=== PATIENT | female | born 1935 | race Caucasian/White ===

== ENCOUNTER 2016-10-24 03:54 | Inpatient (IN) | payer OTHER ==
[2016-10-24] MEDS ORDERED: RAPID SEQUENCE INTUBATION KIT NR ONE ×2 (03:58→09:36)
[2016-10-24 04:10] VITALS: BMI 20.1
--- NOTE | 2016-10-24 04:10 | PDOC ---
History of Present Illness <Ricky Love - Last Filed: 10/24/16 05:54> - History of Present Illness Initial Comments: 10/24/16 05:27 The patient is a 80 year old female, with a significant past medical history liver cirrhosis, who presents to the emergency department via family nonverbal, in extremis, hypoxic, and cyanic. As per the family, the patient has been having difficulty breathing and experiencing a cough today. Allergies: Penicillins PCP - Dr. Villalba <Siobhan Easton - Last Filed: 10/24/16 06:51> - General Chief Complaint: Chest Pain Stated Complaint: CHEST PAIN Time Seen by Provider: 10/24/16 04:10 Past History - Past Medical History Liver Disease: Yes (cirrhosis) - Psycho/Social/Smoking Cessation Hx Suicidal Ideation: No Smoking History: Unknown if ever smoked <Ricky Love - Last Filed: 10/24/16 05:54> <Siobhan Easton - Last Filed: 10/24/16 06:51> - Past Medical History Allergies/Adverse Reactions: Allergies Allergy/AdvReac Type Severity Reaction Status Date / Time Penicillins Allergy Verified 10/24/16 04:08 Home Medications: Ambulatory Orders Salmeterol/Fluticasone [Advair 100Mcg/50Mcg -] 1 inh IH DAILY 10/24/16 Tiotropium Fischer [Spiriva] 1 inh PO DAILY 10/24/16 Review of Systems - Review of Systems Able to Perform ROS?: No (nonverbal) <Siobhan Easton - Last Filed: 10/24/16 06:51> *Physical Exam - Vital Signs Last Vital Signs Temp Pulse Resp BP Pulse Ox 98.4 F 112 H 20 87/47 68 L 10/24/16 04:08 10/24/16 04:08 10/24/16 04:08 10/24/16 04:08 10/24/16 04:08 <Ricky Love - Last Filed: 10/24/16 05:54> - Vital Signs Last Vital Signs Temp Pulse Resp BP Pulse Ox 98.4 F 112 H 17 87/47 68 L 10/24/16 04:08 10/24/16 04:08 10/24/16 04:17 10/24/16 04:08 10/24/16 04:08 - Physical Exam Comments: 10/24/16 06:40 GENERAL: (+) In respiratory distress. Obtundant. Nonverbal. Cachectic. HEENT: neck is supple, no meningismus. Normocephalic, atraumatic. CARDIOVASCULAR: (+) Tachycardic rate and normal rhythm. PULMONARY: (+) Scattered rales and rhonchi. ABDOMEN: Soft, non-distended with hypoactive bowel sounds EXTREMITIES: (+) muscle wasting and cyanotic. moving all four extremities. SKIN: Warm, dry. No rash <Siobhan Easton - Last Filed: 10/24/16 06:51> Procedures - Central Line Central Line Lumen: triple Central Line Position: femoral (L) Complications: none Post Central Line Insertion: sutured, good blood return Progress: 10/24/16 06:07 The central line was put in place by RAILROAD DETECTIVERasheed at 04:59 - Intubation Time of Intubation: 04:05 (performed by Dr. Love) Blade used: Mac Tube Size (Fr): 7.5 Medications: Etomidate, Succinylcholine, Versed (drip) Tube position @ lip (cm): 22 Post Intubation Xray: Yes <Siobhan Easton - Last Filed: 10/24/16 06:51> ED Treatment Course - LABORATORY CBC & Chemistry Diagram: 10/24/16 04:21 10/24/16 04:21 <Ricky Love - Last Filed: 10/24/16 05:54> - LABORATORY CBC & Chemistry Diagram: 10/24/16 04:21 10/24/16 04:21 - ADDITIONAL ORDERS Additional order review: Laboratory Results 10/24/16 10/24/16 10/24/16 04:52 04:21 04:21 D-Dimer Cancelled Sodium Potassium Chloride Carbon Dioxide Anion Gap BUN Creatinine Creat Clearance w eGFR Random Glucose Lactic Acid Calcium Total Bilirubin AST ALT Alkaline Phosphatase Creatine Kinase 38 Troponin I 0.05 B-Natriuretic Peptide 299.76 Total Protein Albumin Urine Color Mary Urine Appearance Cloudy Urine pH 5.0 Ur Specific [place] 1.019 Urine Protein 1+ H Urine Glucose (UA) Negative Urine Ketones Trace H Urine Blood 1+ H Urine Nitrite Negative Urine Bilirubin Negative Urine Urobilinogen 4.0 e.u/dl H Ur Leukocyte Esterase 2+ H 10/24/16 10/24/16 04:21 04:21 D-Dimer Sodium 143 Potassium 4.5 Chloride 111 H Carbon Dioxide 19 L Anion Gap 13 BUN 17 Creatinine 0.8 Creat Clearance w eGFR > 60 Random Glucose 131 H Lactic Acid 5.922 H* Calcium 8.7 Total Bilirubin 2.1 H AST 80 H ALT 38 Alkaline Phosphatase 166 H Creatine Kinase Troponin I B-Natriuretic Peptide Total Protein 5.6 L Albumin 2.3 L Urine Color Urine Appearance Urine pH Ur Specific [place] Urine Protein Urine Glucose (UA) Urine Ketones Urine Blood Urine Nitrite Urine Bilirubin Urine Urobilinogen Ur Leukocyte Esterase 10/24/16 04:21 RBC 5.08 MCV 87.0 MCHC 33.1 RDW 17.3 H MPV 9.5 Neutrophils % 81.9 Lymphocytes % 12.7 Monocytes % 4.5 Eosinophils % 0.2 Basophils % 0.7 - Medications Given in the ED: ED Medications Discontinued Medications Generic Name Dose Route Start Last Admin Trade Name Freq PRN Reason Stop Dose Admin Etomidate 20 mg 10/24/16 04:11 10/24/16 04:21 Amidate - IVPUSH 10/24/16 04:12 20 mg NOW ONE Administration Succinylcholine Chloride 100 mg 10/24/16 04:11 10/24/16 04:21 Quelicin - IVPUSH 10/24/16 04:12 100 mg ONCE ONE Administration <Siobhan Easton - Last Filed: 10/24/16 06:51> Medical Decision Making - Critical Care Time Total Critical Care Time (minutes): 35 Critical Care Statement: The care of this patient involved high complexity decision making to prevent further life threatening deterioration of the patient 's condition and/or to evalute & treat vital organ system(s) failure or risk of failure. <Siobhan Easton - Last Filed: 10/24/16 06:51> *DC/Admit/Observation/Transfer - Discharge Dispostion Admit: Yes <Ricky Love - Last Filed: 10/24/16 05:54> - Attestations Scribe Attestion: 10/24/16 05:45 Documentation prepared by Siobhan Easton, acting as medical claims representative for Ricky Love MD, <Siobhan Easton - Last Filed: 10/24/16 06:51> Diagnosis at time of Disposition: Pneumonia, Sepsis, Cirrhosis - Discharge Dispostion Condition at time of disposition: Critical - Referrals Referrals: Stanley Villalba MD [Primary Care Provider] -
[2016-10-24] MEDS ORDERED: SUCCINYLCHOLINE CHLORIDE 200 MG/10 ML VIAL IVPUSH ONE (04:11)
[2016-10-24] MEDS ORDERED: ETOMIDATE 40 MG/20 ML VIAL IVPUSH ONE (04:11)
[2016-10-24] MEDS ORDERED: MIDAZOLAM 100 MG in SODIUM CHLORIDE 100 ML IVPB SCH (04:15)
[2016-10-24 04:29] LABS: BASOPHIL 0.7 % (0-2.0); EOSINOPHIL 0.2 % (0-4.5); MCH 28.8 pg (25.7-33.7); MCHC 33.1 g/dl (32.0-36.0); MEAN PLT VOLUME 9.5 fl (7.5-11.1); NEUTROPHILS 81.9 % (42.8-82.8); PLATELET COUNT 120 K/MM3 (134-434); RDW 17.3 % (11.6-15.6); WHITE BLOOD COUNT 12.1 K/mm3 (4.0-10.0)
[2016-10-24] MEDS ORDERED: AZTREONAM 2 GM in DEXTROSE 5%-WATER - 100 ML IV ONE (04:31)
[2016-10-24] MEDS ORDERED: VANCOMYCIN 1,000 MG in DEXTROSE 5%-WATER - 250 ML IVPB ONE (04:31)
[2016-10-24] MEDS ORDERED: VANCOMYCIN 1 GRAM (PRE-DOCKED) 250 ML IVPB ONE (04:41)
[2016-10-24] MEDS ORDERED: NOREPINEPHRINE BITARTRATE 4 MG/4 ML ML IV ONE ×2 (04:41→17:08)
[2016-10-24 04:56] LABS: ALBUMIN 2.3 g/dl (3.4-5.0); ALK PHOS 166 U/L (45-117); ANION GAP 13 (8-16); BILIRUBIN,TOTAL 2.1 mg/dL (0.2-1.0); CALCIUM 8.7 mg/dL (8.5-10.1); CO2 19 mmol/L (21-32); CREATININE 0.8 mg/dL (0.55-1.02); GLUCOSE,RANDOM 131 mg/dL (74-106); SGOT/AST 80 U/L (15-37); SGPT/ALT 38 U/L (12-78); TOT PROT 5.6 g/dl (6.4-8.2)
[2016-10-24 05:16] LABS: URINE APPEARANCE CLOUDY; URINE BILIRUBIN NEGATIVE (NEGATIVE); URINE COLOR AMBER; URINE GLUCOSE (UA) NEGATIVE (NEGATIVE); URINE KETONE TRACE (NEGATIVE); URINE NITRITE NEGATIVE (NEGATIVE); URINE UROBILINOGEN 4.0 E.U/dl E.U./dl (0.2-1.0)
[2016-10-24 05:17] LABS: TROPONIN I 0.05 ng/ml (0.00-0.05)
[2016-10-24 05:20] LABS: URINE BLOOD 1+ (NEGATIVE); URINE LEUK ESTERASE 2+ (NEGATIVE); URINE PROTEIN 1+ (NEGATIVE)
[2016-10-24 05:23] LABS: URINE BACTERIA RARE /hpf (NONE SEEN); URINE MUCUS MANY; URINE RBC 16 /hpf (0-3); URINE WBC 60 /hpf (3-5)
[2016-10-24] MEDS ORDERED: NOREPINEPHRINE BITARTRATE 4,000 MCG in DEXTROSE 5%-WATER - 496 ML IV SCH ×2 (05:45→17:52)
[2016-10-24 06:04] LABS: INR 1.99 (0.82-1.09); PROTHROMBIN TIME (PATIENT) 22.2 SEC (9.98-11.88)
[2016-10-24 06:07] LABS: ACTIVATED PTT 38.6 SECONDS (26.9-34.4)
[2016-10-24] MEDS ORDERED: HYDROCORTISONE SOD SUCCINATE 100 MG/2 ML VIAL IVPUSH ONE (06:53)
[2016-10-24] MEDS ORDERED: HYDROCORTISONE SOD SUCCINATE 2 ML ONE (06:58)
[2016-10-24 07:16] LABS: ALLENS TEST POSITIVE; ART PUNCT SITE RIGHT RADIAL; ARTERIAL BLD GAS O2 SATURATION 85.2 % (90-98.9); ARTERIAL BLOOD GAS BASE EXCESS -10.3 meq/l (-2-2); PT. ON O2? YES
[2016-10-24 07:17] LABS: LPM/O2% 100%; MECH. VENT. YES; TYPE OF O2 VENT; VENT RATE 16; VT/PRESS 450
[2016-10-24 07:20] LABS: ARTERIAL BLOOD GAS HCO3 14.5 meq/L (22-26); ARTERIAL BLOOD GAS pH 7.31 (7.35-7.45)
--- NOTE | 2016-10-24 08:19 | PDOC ---
*Physical Exam - Vital Signs Last Vital Signs Temp Pulse Resp BP Pulse Ox 98.4 F 78 16 108/51 100 10/24/16 04:08 10/24/16 05:48 10/24/16 06:51 10/24/16 05:48 10/24/16 05:21 - Physical Exam Comments: 10/24/16 08:14 T 93, warmer applied HR 70s, BP 100/60 O2 80-85%, baseline 88-90% at home Received signout on this 80y/o F with h/o cystic fibrosis on home O2 admitted for septic shock 2/2 b/l pna. Given abx, on vent, admitted to ICU. ABG noted. Increased PEEP, normal airway pressures. Family at bedside. 10/24/16 09:28 Clarified that pt to be admitted to hospitalist, accepted by Dr. Coreas. D/W Dr. Winston, agrees with increasing PEEP. Pt occasionally overbreathing, will paralyze with Cuauhtemoc and re-evaluate. Awaiting ICU bed. Repeat PE for Septic Shock - Vital Signs Vital Signs: Vital Signs Temperature 98.4 F 10/24/16 04:08 Pulse Rate 78 10/24/16 05:48 Respiratory Rate 16 10/24/16 06:51 Blood Pressure 108/51 10/24/16 05:48 O2 Sat by Pulse Oximetry (%) 100 10/24/16 05:21 I have reviewed the most recent vital signs: Yes - PE CV for Spetic Shock: Regular Rhythm (occasional premature beat) Lungs: Other (coarse b/l breath sounds, symmetric) Vascular: Left Radial: 2+, Right Radial: 2+ Capillary Refill: <3 seconds Skin exam: Normal Color - Impression Impression: Vasopressors not indicated, pt still hypovolemic ED Treatment Course - LABORATORY CBC & Chemistry Diagram: 10/24/16 04:21 10/24/16 04:21 - ADDITIONAL ORDERS Additional order review: Laboratory Results 10/24/16 10/24/16 10/24/16 05:30 04:52 04:21 INR 1.99 H PTT (Actin FS) 38.6 H D-Dimer 868 H Sodium Potassium Chloride Carbon Dioxide Anion Gap BUN Creatinine Creat Clearance w eGFR Random Glucose Lactic Acid Calcium Total Bilirubin AST ALT Alkaline Phosphatase Creatine Kinase 38 Troponin I 0.05 B-Natriuretic Peptide 299.76 Total Protein Albumin Urine Color Mary Urine Appearance Cloudy Urine pH 5.0 Ur Specific [place] 1.019 Urine Protein 1+ H Urine Glucose (UA) Negative Urine Ketones Trace H Urine Blood 1+ H Urine Nitrite Negative Urine Bilirubin Negative Urine Urobilinogen 4.0 e.u/dl H Ur Leukocyte Esterase 2+ H 10/24/16 10/24/16 10/24/16 04:21 04:21 04:21 INR PTT (Actin FS) D-Dimer Cancelled Sodium 143 Potassium 4.5 Chloride 111 H Carbon Dioxide 19 L Anion Gap 13 BUN 17 Creatinine 0.8 Creat Clearance w eGFR > 60 Random Glucose 131 H Lactic Acid 5.922 H* Calcium 8.7 Total Bilirubin 2.1 H AST 80 H ALT 38 Alkaline Phosphatase 166 H Creatine Kinase Troponin I B-Natriuretic Peptide Total Protein 5.6 L Albumin 2.3 L Urine Color Urine Appearance Urine pH Ur Specific [place] Urine Protein Urine Glucose (UA) Urine Ketones Urine Blood Urine Nitrite Urine Bilirubin Urine Urobilinogen Ur Leukocyte Esterase 10/24/16 04:21 RBC 5.08 MCV 87.0 MCHC 33.1 RDW 17.3 H MPV 9.5 Neutrophils % 81.9 Lymphocytes % 12.7 Monocytes % 4.5 Eosinophils % 0.2 Basophils % 0.7 - Medications Given in the ED: ED Medications Discontinued Medications Generic Name Dose Route Start Last Admin Trade Name Santana PRN Reason Stop Dose Admin Etomidate 20 mg 10/24/16 04:11 10/24/16 04:21 Amidate - IVPUSH 10/24/16 04:12 20 mg NOW ONE Administration Hydrocortisone Sodium Succinate 100 mg 10/24/16 06:53 10/24/16 07:06 Solu-Cortef - IVPUSH 10/24/16 06:54 100 mg ONCE ONE Administration Vancomycin HCl 1,000 mg/ 250 mls @ 250 mls/hr 10/24/16 04:31 10/24/16 05:03 Dextrose IVPB 10/24/16 05:30 250 mls/hr ONCE ONE Administration Protocol Succinylcholine Chloride 100 mg 10/24/16 04:11 10/24/16 04:21 Quelicin - IVPUSH 10/24/16 04:12 100 mg ONCE ONE Administration *DC/Admit/Observation/Transfer Diagnosis at time of Disposition: Pneumonia, Sepsis, Cirrhosis - Discharge Dispostion Condition at time of disposition: Critical
--- NOTE | 2016-10-24 09:21 | HP ---
CHIEF COMPLAINT: Shortness of breath Container Washer: Dr. 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 Family states that she was in her usual state of health until yesterday, when she seemed to be coughing more than usual and complained of chest pain at about 2am, prompting them to bring her to the ED. She has not had fevers/chills or any other symptoms. ER course was notable for: (1) Intubated for respiratory failure (2) Found to be hypothermic to 93F and placed on Heather Hugger (3) Hypotensive (MAP 48); TLC inserted and norepinephrine started (4) CXR with increased lung markings when compared with prior, right hilar/ paratracheal fullness (5) UA with 60 WBCs Recent Travel: None Social History: Lives with , has [employer] services 8h/day, requires assistance in all ADLs, gets out of bed into wheelchair daily. [facility], has 11 children. Smoking: Never smoker Alcohol: None Allergies Penicillins Allergy (Verified 10/24/16 04:08) family denies HOME MEDICATIONS: Home Medications Medication Instructions Recorded Salmeterol/Fluticasone [Advair 1 inh IH DAILY 10/24/16 100Mcg/50Mcg -] Tiotropium [place] [Spiriva] 1 inh PO DAILY 10/24/16 REVIEW OF SYSTEMS Patient is unable to participate PHYSICAL EXAMINATION Vital Signs - 24 hr 10/24/16 10/24/16 06:51 08:19 Respiratory 16 16 Rate GENERAL: Sedated, paralyzed, mechanically ventilated. HEAD: Normal with no signs of trauma. EYES: Pupils equal, round and reactive to light, extraocular movements intact, sclera anicteric, conjunctiva clear. No lid lag. EARS, NOSE, THROAT: Ears normal, nares patent, oropharynx clear without exudates. Moist mucous membranes. NECK: Normal range of motion, supple without lymphadenopathy, JVD, or masses. LUNGS: Mechanical breath sounds, slightly diminished at bases. HEART: Regular rate and rhythm, normal S1 and S2 without murmur, rub or gallop. ABDOMEN: Soft, nontender, not distended, normoactive bowel sounds, no guarding, no rebound, no masses. No hepatomegaly or splenomegaly. MUSCULOSKELETAL: Normal range of motion at all joints. No bony deformities or tenderness. No CVA tenderness. UPPER EXTREMITIES: 2+ pulses, warm, well-perfused. No cyanosis. No clubbing. Cap refill <2 seconds. No peripheral edema. LOWER EXTREMITIES: 2+ pulses, warm, well-perfused. No calf tenderness. No peripheral edema. Left femoral TLC. NEUROLOGICAL: Sedated, paralyzed. SKIN: Warm, dry, normal turgor, no rashes or lesions noted. Laboratory Results - last 24 hr 10/24/16 10/24/16 06:33 07:00 Anticoagulation Therapy Y Puncture Site Right radial ABG pH 7.31 L ABG pCO2 at Pt Temp 29.7 L ABG pO2 at Pt Temp 62.0 L ABG HCO3 14.5 L* ABG O2 Sat (Measured) 85.2 L ABG O2 Content 15.4 ABG Base Excess -10.3 L* Chance Test Positive O2 Delivery Device Vent Oxygen Flow Rate 100% Vent Mode A/c Vent Rate 16 Mechanical Rate Yes PEEP 5.0 Pressure Support Vent 450 Lactic Acid 3.928 H* ASSESSMENT/PLAN: 80 year old female with hepatopulmonary syndrome admitted to ICU with respiratory failure and septic shock likely secondary to PNA and UTI. Problem List - Problem (1) Acute hypoxemic respiratory failure Assessment/Plan: -SpO2 now 70% on 100% FiO2/PEEP 10 - family states 70% is baseline at rest on 10L O2 -ICU monitoring; daily SBTs -GI ppx (septic shock, expected vent days >2, steroids) Code(s): J96.01 - ACUTE RESPIRATORY FAILURE WITH HYPOXIA (2) Pneumonia Assessment/Plan: -Presentation clinically suspicious for PNA with possible early infiltrates on CXR -Cefepime/Levaquin/Vancomycin pending ID approval -Dose all meds for CrCl 49 -Sputum culture -Urine antigens -Follow up blood cultures -Repeat lactic acid now -Ventilatory support as above Code(s): J18.9 - PNEUMONIA, UNSPECIFIED ORGANISM (3) Urinary tract infection Assessment/Plan: -Antibiotics as above -Follow up culture Code(s): N39.0 - URINARY TRACT INFECTION, SITE NOT SPECIFIED (4) Septic shock Assessment/Plan: -Abx as above Continue IVF resuscitation -Continue vasopressor support (currently on norepinephrine 15mcg), wean as tolerated -Hydrocortisone 50mg q6h -FS q6h and ISS while on steroids to keep glucose <180 -Follow lactic acid Code(s): A41.9 - SEPSIS, UNSPECIFIED ORGANISM R65.21 - SEVERE SEPSIS WITH SEPTIC SHOCK (5) Hypothermia Assessment/Plan: -Continue Heather Hugger Code(s): T68.XXXA - HYPOTHERMIA, INITIAL ENCOUNTER (6) DVT prophylaxis Assessment/Plan: -SCDs pending DIC workup Code(s): GRS5989 - (7) DIC (disseminated intravascular coagulation) Assessment/Plan: -INR 1.99, Fibrinogen <100, D-dimer 868, Plt 120 -Fibrin degradation product pending -Hematology consult Code(s): D65 - DISSEMINATED INTRAVASCULAR COAGULATION (8) Goals of care, counseling/discussion Assessment/Plan: -Discussed at length with >10 family members at bedside -Daughter Diana Beltrán ([phone]) is to be primary contact -She states that her mother never wanted to be intubated; however, wish to continue vent support for now and re-evaluate how she is doing in a few days-- may consider withdrawing at that time if not improving. For now, family does want all measures including CPR. Code(s): Z71.89 - OTHER SPECIFIED COUNSELING Visit type - Emergency Visit Emergency Visit: Yes ED Registration Date: 10/24/16 Care time: The patient presented to the Emergency Department on the above date and was hospitalized for further evaluation of their emergent condition. - New Patient This patient is new to me today: Yes Date on this admission: 10/25/16 - Critical Care Critical Care patient: Yes Total Critical Care Time (in minutes): 35 Critical Care Statement: The care of this patient involved high complexity decision making to prevent further life threatening deterioration of the patient 's condition and/or to evalute & treat vital organ system(s) failure or risk of failure.
[2016-10-24] MEDS ORDERED: ACETAMINOPHEN 325 MG SUPP.RECT PR PRN (09:24)
[2016-10-24] MEDS ORDERED: ROCURONIUM BROMIDE 50 MG/5 ML VIAL IVPUSH ONE (09:36)
[2016-10-24] MEDS ORDERED: CEFEPIME HCL 2 GM VIAL (RESTRICTED TO ID) IVPB SCH ×2 (10:00→18:00)
[2016-10-24] MEDS ORDERED: LEVOFLOXACIN 750 MG IVPB 150 ML IVPB SCH (10:00)
[2016-10-24] MEDS ORDERED: LEVOFLOXACIN 750 MG IVPB 150 ML IVPB ONE (10:00)
[2016-10-24] MEDS ORDERED: ENOXAPARIN NA (PORCINE) 40 MG/0.4 ML DISP.SYRIN SQ SCH (10:00)
[2016-10-24] MEDS ORDERED: CEFEPIME 2 GM/100 ML BAG PRE-DOCKED IVPB ONE (10:30)
--- NOTE | 2016-10-24 11:10 | PN ---
Progress Note (short form) - Note Progress Note: ID consult dictated imp/reccd acute respiratory failure-advanced lung disease septic shock history of hep c- liver cirrhosis hepatopulmonary syndrome ?pen allergy- family denies she uses 6 liters NC at home, is supposed to use a facemask but does not on oxygen at least 10 years unable to walk due to PIERRE-uses a wheelchair gets SOB when she eats no travel no sick contacts no recent antibiotics no fevers/chills no GI/ complaints some cough yesterday developed acute worsening of SOB and Chest pain at 2 am, she called her daughter who came over she was hypoxic and hypotensive and unresponsive in the ED she was intubated on arrival to ED lives with has an aide received vanco/azactam in ED then cefepime/levaquin this am cxray with suggestion right hilar fullness with right hilar infiltrate UTI agree with cultures- blood/urine/sputum legionella urinary antigen influenza screen continue vanco, switch to meropenem to cover lung and urine icu evaluation pending overall prognosis poor given extent of lung disease call in to PMD to discuss
[2016-10-24] MEDS ORDERED: PNEUMOC 13-VAL CONJ-DIP CRM/PF 0.5 ML DISP.SYRIN IM ONE (11:11)
--- NOTE | 2016-10-24 12:20 | EKG ---
Test Reason : Blood Pressure : / mmHG Vent. Rate : 112 BPM Atrial Rate : 112 BPM P-R Int : 168 ms QRS Dur : 076 ms QT Int : 364 ms P-R-T Axes : -20 006 026 degrees QTc Int : 496 ms SINUS TACHYCARDIA OTHERWISE NORMAL ECG WHEN COMPARED WITH ECG OF 14-AUG-2001 00:06, VENT. RATE HAS INCREASED BY 49 BPM Confirmed by YOSEF MCBRIDE MD ([id number]) on 10/24/2016 12:20:18 PM Referred By: Confirmed By:YOSEF MCBRIDE MD
[2016-10-24] MEDS: FAMOTIDINE 20 MG/50 ML IVPB 50 ML IVPB SCH ×2 (12:49→21:26)
[2016-10-24] MEDS: INSULIN SLIDING SCALE (NOVOLOG) 1 VIAL SQ SCH ×3 (12:54→23:00)
[2016-10-24] MEDS: SODIUM CHLORIDE 1,000 ML IV SCH (13:04)
[2016-10-24] MEDS: PROPOFOL 100 ML IVPB SCH (13:04)
[2016-10-24] MEDS: MUPIROCIN 2% TOPICAL OINTMENT FOR DECOLONIZATION NS SCH ×2 (13:13→21:27)
--- NOTE | 2016-10-24 15:00 | PN ---
Teaching Attending Note Name of Resident: Juan Morales ATTENDING PHYSICIAN STATEMENT I saw and evaluated the patient. I reviewed the resident's note and discussed the case with the resident. I agree with the resident's findings and plan as documented. SUBJECTIVE: Patient seen and examined in the ICU. Intubated and sedated. AC Mode of vent 100% FiO2. NE at 8 mcq for hemodynamic support. GENERAL: Sedated, mechanically ventilated. HEAD: Normal with no signs of trauma. EYES: Pupils equal, round and reactive to light, extraocular movements intact, sclera anicteric, conjunctiva clear. No lid lag. EARS, NOSE, THROAT: Ears normal, nares patent, oropharynx clear without exudates. Moist mucous membranes. NECK: Normal range of motion, supple without lymphadenopathy, JVD, or masses. LUNGS: Bilateral rhonchi, no wheezing HEART: Regular rate and rhythm, normal S1 and S2 without murmur, rub or gallop. ABDOMEN: Soft, nontender, not distended, normoactive bowel sounds, no guarding, no rebound, no masses. No hepatomegaly or splenomegaly. MUSCULOSKELETAL: Normal range of motion at all joints. No bony deformities or tenderness. No CVA tenderness. UPPER EXTREMITIES: 2+ pulses, warm, well-perfused. No cyanosis. No clubbing. Cap refill <2 seconds. No peripheral edema. LOWER EXTREMITIES: 2+ pulses, warm, well-perfused. No calf tenderness. No peripheral edema. Left femoral TLC. NEUROLOGICAL: Sedated SKIN: Warm, dry, normal turgor, no rashes or lesions noted. Laboratory Results - last 24 hr 10/24/16 10/24/16 10/24/16 04:21 04:21 04:21 WBC 12.1 H RBC 5.08 Hgb 14.6 Hct 44.2 MCV 87.0 MCHC 33.1 RDW 17.3 H Plt Count 120 L MPV 9.5 Neutrophils % 81.9 Lymphocytes % 12.7 Monocytes % 4.5 Eosinophils % 0.2 Basophils % 0.7 INR PTT (Actin FS) Fibrinogen D-Dimer Anticoagulation Therapy Puncture Site ABG pH ABG pCO2 at Pt Temp ABG pO2 at Pt Temp ABG HCO3 ABG O2 Sat (Measured) ABG O2 Content ABG Base Excess Chance Test O2 Delivery Device Oxygen Flow Rate Vent Mode Vent Rate Mechanical Rate PEEP Pressure Support Vent Sodium 143 Potassium 4.5 Chloride 111 H Carbon Dioxide 19 L Anion Gap 13 BUN 17 Creatinine 0.8 Creat Clearance w eGFR > 60 Random Glucose 131 H Lactic Acid 5.922 H* Calcium 8.7 Total Bilirubin 2.1 H AST 80 H ALT 38 Alkaline Phosphatase 166 H Creatine Kinase Troponin I B-Natriuretic Peptide Total Protein 5.6 L Albumin 2.3 L Urine Color Urine Appearance Urine pH Ur Specific [place] Urine Protein Urine Glucose (UA) Urine Ketones Urine Blood Urine Nitrite Urine Bilirubin Urine Urobilinogen Ur Leukocyte Esterase Urine RBC Urine WBC Ur Epithelial Cells Urine Bacteria Urine Mucus 10/24/16 10/24/16 10/24/16 04:21 04:21 04:52 WBC RBC Hgb Hct MCV MCHC RDW Plt Count MPV Neutrophils % Lymphocytes % Monocytes % Eosinophils % Basophils % INR PTT (Actin FS) Fibrinogen D-Dimer Cancelled Anticoagulation Therapy Puncture Site ABG pH ABG pCO2 at Pt Temp ABG pO2 at Pt Temp ABG HCO3 ABG O2 Sat (Measured) ABG O2 Content ABG Base Excess Chance Test O2 Delivery Device Oxygen Flow Rate Vent Mode Vent Rate Mechanical Rate PEEP Pressure Support Vent Sodium Potassium Chloride Carbon Dioxide Anion Gap BUN Creatinine Creat Clearance w eGFR Random Glucose Lactic Acid Calcium Total Bilirubin AST ALT Alkaline Phosphatase Creatine Kinase 38 Troponin I 0.05 B-Natriuretic Peptide 299.76 Total Protein Albumin Urine Color Mary Urine Appearance Cloudy Urine pH 5.0 Ur Specific [place] 1.019 Urine Protein 1+ H Urine Glucose (UA) Negative Urine Ketones Trace H Urine Blood 1+ H Urine Nitrite Negative Urine Bilirubin Negative Urine Urobilinogen 4.0 e.u/dl H Ur Leukocyte Esterase 2+ H Urine RBC 16 Urine WBC 60 Ur Epithelial Cells Rare Urine Bacteria Rare Urine Mucus Many 10/24/16 10/24/16 10/24/16 05:30 06:33 07:00 WBC RBC Hgb Hct MCV MCHC RDW Plt Count MPV Neutrophils % Lymphocytes % Monocytes % Eosinophils % Basophils % INR 1.99 H PTT (Actin FS) 38.6 H Fibrinogen D-Dimer 868 H Anticoagulation Therapy Y Puncture Site Right radial ABG pH 7.31 L ABG pCO2 at Pt Temp 29.7 L ABG pO2 at Pt Temp 62.0 L ABG HCO3 14.5 L* ABG O2 Sat (Measured) 85.2 L ABG O2 Content 15.4 ABG Base Excess -10.3 L* Chance Test Positive O2 Delivery Device Vent Oxygen Flow Rate 100% Vent Mode A/c Vent Rate 16 Mechanical Rate Yes PEEP 5.0 Pressure Support Vent 450 Sodium Potassium Chloride Carbon Dioxide Anion Gap BUN Creatinine Creat Clearance w eGFR Random Glucose Lactic Acid 3.928 H* Calcium Total Bilirubin AST ALT Alkaline Phosphatase Creatine Kinase Troponin I B-Natriuretic Peptide Total Protein Albumin Urine Color Urine Appearance Urine pH Ur Specific [place] Urine Protein Urine Glucose (UA) Urine Ketones Urine Blood Urine Nitrite Urine Bilirubin Urine Urobilinogen Ur Leukocyte Esterase Urine RBC Urine WBC Ur Epithelial Cells Urine Bacteria Urine Mucus 10/24/16 10/24/16 11:26 13:41 WBC RBC Hgb Hct MCV MCHC RDW Plt Count MPV Neutrophils % Lymphocytes % Monocytes % Eosinophils % Basophils % INR PTT (Actin FS) Fibrinogen < 100.0 L* D-Dimer Anticoagulation Therapy Puncture Site ABG pH ABG pCO2 at Pt Temp ABG pO2 at Pt Temp ABG HCO3 ABG O2 Sat (Measured) ABG O2 Content ABG Base Excess Chance Test O2 Delivery Device Oxygen Flow Rate Vent Mode Vent Rate Mechanical Rate PEEP Pressure Support Vent Sodium Potassium Chloride Carbon Dioxide Anion Gap BUN Creatinine Creat Clearance w eGFR Random Glucose Lactic Acid 3.909 H* Calcium Total Bilirubin AST ALT Alkaline Phosphatase Creatine Kinase Troponin I B-Natriuretic Peptide Total Protein Albumin Urine Color Urine Appearance Urine pH Ur Specific [place] Urine Protein Urine Glucose (UA) Urine Ketones Urine Blood Urine Nitrite Urine Bilirubin Urine Urobilinogen Ur Leukocyte Esterase Urine RBC Urine WBC Ur Epithelial Cells Urine Bacteria Urine Mucus Problem List - Problem (1) Acute hypoxemic respiratory failure Assessment/Plan: Code(s): J96.01 - ACUTE RESPIRATORY FAILURE WITH HYPOXIA (2) Pneumonia Assessment/Plan: Code(s): J18.9 - PNEUMONIA, UNSPECIFIED ORGANISM (3) Urinary tract infection Assessment/Plan: Code(s): N39.0 - URINARY TRACT INFECTION, SITE NOT SPECIFIED (4) Septic shock Assessment/Plan: Code(s): A41.9 - SEPSIS, UNSPECIFIED ORGANISM R65.21 - SEVERE SEPSIS WITH SEPTIC SHOCK (5) Hypothermia Assessment/Plan: Code(s): T68.XXXA - HYPOTHERMIA, INITIAL ENCOUNTER (6) Prolonged INR Assessment/Plan: Code(s): R79.1 - ABNORMAL COAGULATION PROFILE (7) DVT prophylaxis Assessment/Plan: Code(s): [id number] - (8) Goals of care, counseling/discussion Assessment/Plan: Code(s): Z71.89 - OTHER SPECIFIED COUNSELING PLAN: Vent parameters changed Minimize IVF ABX per ID Jacobs-culture Pressors to maintain MAP Will need to change access Need GOC discussions with family Dr Winston CCTime 35"
--- NOTE | 2016-10-24 15:41 | CONS ---
DATE OF CONSULTATION: 10/24/2016 This is an 25-wzyp-xfy-woman who was admitted early this morning from home. History was obtained from her family who is at her bedside. Apparently, she uses oxygen at home which she has used for at least the last 10 years. She is supposed to use a face mask but does not. She is unable to walk due to dyspnea on exertion. She uses a wheelchair. She gets short of breath when she eats. There is no history of any travel or sick contacts. They do not known about her immunizations. She has had no fevers or chills. No GI or complaints. Yesterday evening they saw her. She had some cough, a little bit more than usual. Except for that, she was at her baseline. She is at baseline, dyspneic. This morning at 2 a.m. she called her daughter, stating that her shortness of breath was worse and she was having acute chest pain. Her daughter came over and she was brought to the hospital. She was hypoxic and hypotensive, unresponsive in the emergency room, and she was intubated on arrival. PAST MEDICAL HISTORY: Notable for a history of hepatitis C status post blood transfusion. They discovered this in 1975. The family reports she has cirrhosis and has never been treated. She has a history of emphysema, as well. Family thinks cystic fibrosis, though I am questioning whether perhaps she has interstitial fibrosis, but the details of this are not available. SOCIAL HISTORY: She lives with her . She has a home health aide and she uses her oxygen. She is originally from [facility] and has 11 children. There is no history of any cigarette or substance use. ALLERGIES: By the emergency room chart, she is allergic to PENICILLIN but her daughters are not aware of this allergy. MEDICATIONS: At home are Advair and Spiriva. REVIEW OF SYSTEMS: She is unresponsive. Per the family who saw her last night, she did not have any GI, , and the only complaint she had was dry cough. There were no complaints at all of fevers or chills or feeling unwell when they saw her last night. PHYSICAL EXAMINATION: General. She is sedated, paralyzed. She is intubated. Vital Signs: Temperature on admission was 98.4, pulse is now 112, blood pressure is 79/67. Weight is 110. Blood pressure is 111/66. She is on 100% FiO2. HEENT: She is normocephalic. She is orally intubated. She has dry oral mucosa. Neck: Supple. Lungs: Have diminished breath sounds at the bases. Heart: Regular rate and rhythm. Abdomen: Soft, nontender. She has no skin breakdown. LABORATORIES: Notable for a white count of 12, hemoglobin of 14.6, platelets of 120. Her INR is 1.99. Her BUN is 17, creatinine is 0.8. Lactic acid was 5.9 and on repeat was 3.9. CK of 38. Her urinalysis had 2+ leukocyte esterase with 60 white cells. Chest x-ray reveals right paratracheal and right hilar fullness. In summary, this is an 11-dvae[age]zyw-woman with advanced lung disease with acute respiratory failure, septic shock, history of hepatitis C with liver cirrhosis and the question of a PENICILLIN allergy but her family denies. She has received vancomycin Azactam in the emergency room as well as cefepime and Levaquin. I would agree with cultures, blood, urine, sputum, legionella and pneumococcal urinary antigens. An influenza screen should be done as well. I would continue the vancomycin and cefepime and switch her in the morning to Zithromax for atypical coverage. ICU evaluation is pending. Overall prognosis is quite poor given the extent of her lung disease and I have a call in to her PMD to discuss her care. The hospitalist has had goals of care with the family and our present plan is for continued aggressive care with re-evaluation based on her clinical course. DOUG SCHWARTZ M.D. [id number]
[2016-10-24] MEDS: HYDROCORTISONE SOD SUCCINATE 100 MG/2 ML VIAL IVPB SCH ×2 (17:50→20:58)
--- NOTE | 2016-10-24 18:01 | PN ---
Addendum entered and electronically signed by Juan Morales RES 10/25/16 11:41: This is to correct the physical exam, which was mixed up from another instance of [employer]: GENERAL: Intubated, sedated, on mechanical ventilation LUNGS: Decreased breath sounds at bases HEART: Regular rate and rhythm, S1, S2 without murmur, rub or gallop. ABDOMEN: Soft, no grimace on face upon palpation, non-distended EXTREMITIES: warm and no edema : santos in place, yuri color urine output Original Note: Physical Exam: SUBJECTIVE: Patient seen and examined at bedside in the ICU. She's intubated and sedated. OBJECTIVE: Intubated, sedated on mechanical ventilation Vent settings: AC, RR 16, TV 450, FiO2 100, PEEP 13 On propofol 10mcg and levophed 12 mcg Vital Signs Period Temp Pulse Resp BP Sys/Carias Pulse Ox Last 24 Hr 93 F-98.3 F 70-124 16-40 81-166/49-94 69-100 GENERAL: Intubated, sedated, on mechanical ventilation and pressor LUNGS: Decreased breath sounds at bases HEART: Regular rate and rhythm, S1, S2 without murmur, rub or gallop. ABDOMEN: Soft, nontender, mildly distended. RUQ percutaneous drain in dark brown color, L femoral TLC EXTREMITIES: warm and no edema NEUROLOGICAL: 3/5 strength in all extremities and sensation intact : santos in place, yuri color urine output ABG Results ABG pH 7.31 (7.35-7.45) L 10/24/16 07:00 ABG pCO2 at Pt Temp 29.7 mmHg (35-45) L 10/24/16 07:00 ABG pO2 at Pt Temp 62.0 mmHg (68-100) L 10/24/16 07:00 ABG HCO3 14.5 meq/L (22-26) L* 10/24/16 07:00 ABG O2 Sat (Measured) 85.2 % (90-98.9) L 10/24/16 07:00 ABG O2 Content 15.4 % vol (15-22) 10/24/16 07:00 ABG Base Excess -10.3 meq/l (-2-2) L* 10/24/16 07:00 CBCD WBC 12.1 K/mm3 (4.0-10.0) H 10/24/16 04:21 RBC 5.08 M/mm3 (3.60-5.2) 10/24/16 04:21 Hgb 14.6 GM/dL (10.7-15.3) 10/24/16 04:21 Hct 44.2 % (32.4-45.2) 10/24/16 04:21 MCV 87.0 fl (80-96) 10/24/16 04:21 MCHC 33.1 g/dl (32.0-36.0) 10/24/16 04:21 RDW 17.3 % (11.6-15.6) H 10/24/16 04:21 Plt Count 120 K/MM3 (134-434) L 10/24/16 04:21 MPV 9.5 fl (7.5-11.1) 10/24/16 04:21 CMP Sodium 143 mmol/L (136-145) 10/24/16 04:21 Potassium 4.5 mmol/L (3.5-5.1) 10/24/16 04:21 Chloride 111 mmol/L (98-107) H 10/24/16 04:21 Carbon Dioxide 19 mmol/L (21-32) L 10/24/16 04:21 Anion Gap 13 (8-16) 10/24/16 04:21 BUN 17 mg/dL (7-18) 10/24/16 04:21 Creatinine 0.8 mg/dL (0.55-1.02) 10/24/16 04:21 Creat Clearance w eGFR > 60 (>60) 10/24/16 04:21 Calcium 8.7 mg/dL (8.5-10.1) 10/24/16 04:21 Total Bilirubin 2.1 mg/dL (0.2-1.0) H 10/24/16 04:21 AST 80 U/L (15-37) H 10/24/16 04:21 ALT 38 U/L (12-78) 10/24/16 04:21 Alkaline Phosphatase 166 U/L (45-117) H 10/24/16 04:21 Total Protein 5.6 g/dl (6.4-8.2) L 10/24/16 04:21 Albumin 2.3 g/dl (3.4-5.0) L 10/24/16 04:21 Urine Test Results Urine Color Yuri 10/24/16 04:52 Urine Appearance Cloudy 10/24/16 04:52 Urine pH 5.0 (5.0-8.0) 10/24/16 04:52 Ur Specific [place] 1.019 (1.001-1.035) 10/24/16 04:52 Urine Protein 1+ (NEGATIVE) H 10/24/16 04:52 Urine Glucose (UA) Negative (NEGATIVE) 10/24/16 04:52 Urine Ketones Trace (NEGATIVE) H 10/24/16 04:52 Urine Blood 1+ (NEGATIVE) H 10/24/16 04:52 Urine Nitrite Negative (NEGATIVE) 10/24/16 04:52 Urine Bilirubin Negative (NEGATIVE) 10/24/16 04:52 Ur Leukocyte Esterase 2+ (NEGATIVE) H 10/24/16 04:52 Urine RBC 16 /hpf (0-3) 10/24/16 04:52 Urine WBC 60 /hpf (3-5) 10/24/16 04:52 Ur Epithelial Cells Rare /hpf (FEW) 10/24/16 04:52 Urine Bacteria Rare /hpf (NONE SEEN) 10/24/16 04:52 Urine Mucus Many 10/24/16 04:52 Intake & Output 10/21/16 10/22/16 10/23/16 10/24/16 23:59 23:59 23:59 23:59 Output Total 200 Balance -200 Weight 49.895 kg Active Medications Generic Name Dose Route Start Last Admin Trade Name Freq PRN Reason Stop Dose Admin Acetaminophen 325 mg 10/24/16 09:24 Tylenol Suppository - NC Q6H PRN FEVER OR PAIN Cefepime HCl 2 gm 10/24/16 22:00 Maxipime 2gm Ivpb (Pre-Docked) IVPB BID KATIE Protocol Chlorhexidine Gluconate 1 applic 10/24/16 22:00 Hibiclens For Decolonization - TP HS KATIE Hydrocortisone Sodium Succinate 50 mg 10/24/16 15:00 Solu-Cortef - IVPB Q6H-IV KATIE Norepinephrine Bitartrate 4, 500 mls @ 37.5 mls/hr 10/24/16 05:45 10/24/16 08: 36 000 mcg/ Dextrose IV 15 mcg/min TITR KATIE Titration Protocol 5 MCG/MIN Sodium Chloride 1,000 mls @ 83 mls/hr 10/24/16 09:30 10/24/16 13:04 Normal Saline - IV 10/25/16 21:33 83 mls/hr ASDIR KATIE Administration Famotidine/Sodium Chloride 50 mls @ 100 mls/hr 10/24/16 10:00 10/24/16 12:49 Pepcid 20 Mg Premixed Ivpb - IVPB 100 mls/hr BID KATIE Administration Vancomycin HCl 750 mg/ 250 mls @ 250 mls/hr 10/24/16 22:00 Dextrose IVPB BID KATIE Protocol Levofloxacin 150 mls @ 100 mls/hr 10/26/16 10:00 Levaquin 750 Mg Premixed Ivpb - IVPB Q48H KATIE Propofol 100 mls @ 1.497 mls/hr 10/24/16 11:45 10/24/16 13:04 Diprivan - IVPB 1.497 mls/hr TITR KATIE Administration Protocol 5 MCG/KG/MIN Morphine Sulfate 100 mg/ 100 mls @ 2 mls/hr 10/24/16 17:15 Sodium Chloride IVPB TITR KATIE Protocol 2 MG/HR Insulin Aspart 1 vial 10/24/16 11:00 10/24/16 12:54 Novolog Vial Sliding Scale - SQ 4 units ACHS KATIE Administration Protocol Mupirocin 1 applic 10/24/16 10:00 10/24/16 13:13 Bactroban Ointment (For Decolonization) - NS 10/29/16 09:59 Not Given BID [facility] Pneumococcal 13-Valent Conj Vacc 0.5 ml 10/24/16 11:11 Prevnar 13 Syringe - IM 10/24/16 11:12 .ONCE ONE Microbiology 10/24/16 13:41 Urine For Antigen Detection Legionella Antigen - Final 10/24/16 13:41 Urine For Antigen Detection Streptococcus pneumoniae Antigen (M - Final Imaging CXR on 10/24: Shallow inspiration. Status post intubation,Status post intubation , the tip of ET tube at the level of T2-T3. No pneumothorax is seen. 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 of ~70%, end stage liver cirrhosis 2/2 hepatitis C admitted to ICU with respiratory failure and septic shock likely 2/2 pneumonia vs. UTI Respiratory: Acute hypoxic respiratory failure 2/2 hepatopulmonary syndrome and pulmonary fibrosis - On mechanical ventilation: see settings above - H/O pulmonary fibrosis and end stage liver cirrhosis - Maintain O2 > 88% (baseline ~70% on home O2) - Daily ABG and CXR ID: septic shock 2/2 ?pneumonia vs. UTI - Afrebile with leukocytosis - Positive UA and negative CXR - Pending cultures - Trend lactic acid - Cont. IVF and pressor to maintain MAP > 65% - Cont. vancomycin, levaquin and cefepime Heme: DIC - Elevated INR and D-dimer with low fibrinogen and PTT * transfuse 2 units of Cryo Neuro: Sedated and hypothermia - Hypothermia, cont. rosalia hugger to maintain body temperature - Daily sedation vocation as tolerated GI: End stage liver cirrhosis - not a liver transplant candidate due to age and comorbidities FEN - NS 83ml/hr - Cont. to monitor lytes - NPO, will start tube feed on day 2 of intubation Prophylaxis - DVT: SCD - GI: famotidine Disposition - Cont. to monitor in ICU Code status - DNR Visit type - Emergency Visit Emergency Visit: Yes ED Registration Date: 10/24/16 Care time: The patient presented to the Emergency Department on the above date and was hospitalized for further evaluation of their emergent condition. - New Patient This patient is new to me today: Yes Date on this admission: 10/24/16 - Critical Care Critical Care patient: Yes Total Critical Care Time (in minutes): 45 Critical Care Statement: The care of this patient involved high complexity decision making to prevent further life threatening deterioration of the patient 's condition and/or to evalute & treat vital organ system(s) failure or risk of failure.
[2016-10-24] MEDS: MORPHINE 100 MG in SODIUM CHLORIDE 98 ML IVPB SCH (18:28)
[2016-10-24] MEDS: NOREPINEPHRINE BITARTRATE 8,000 MCG in DEXTROSE 5%-WATER - 496 ML IV SCH (18:45)
--- NOTE | 2016-10-24 20:27 | PN ---
Progress Note (short form) - Note Progress Note: Patient seen and examined The patient is a 80 year old female, with a significant past medical history liver cirrhosis, who presents to the emergency department via family nonverbal, in extremis, hypoxic, and cyanic. As per the family, the patient has been having difficulty breathing and experiencing a cough today. Allergies: Penicillins Past History - Past Medical History Liver Disease: Yes (cirrhosis) Allergies/Adverse Reactions: Allergies Allergy/AdvReac Type Severity Reaction Status Date / Time Penicillins Allergy Verified 10/24/16 04:08 Home Medications: Ambulatory Orders Salmeterol/Fluticasone [Advair 100Mcg/50Mcg -] 1 inh IH DAILY 10/24/16 Tiotropium [place] [Spiriva] 1 inh PO DAILY 10/24/16 - Vital Signs Last Vital Signs Temp Pulse Resp BP Pulse Ox 98.4 F 112 H 20 87/47 68 L 10/24/16 04:08 10/24/16 04:08 10/24/16 04:08 10/24/16 04:08 10/24/16 04:08 intubated/in extremis Cor: RSR, No murmurs, No gallops Lungs: Clear anteriorly Abd: Soft, Normal bowel sounds, Ext:No significant edema Labs reviewed A/P 80 y/o with cirrhosis, advanced lung disease, with septic shock coagulopathy due to liver disease/sepsis transfuse cryoprecipitate for fibrinogen <100 vit. k trial transsfuse ffp/platelets if bleeding actively on broad spectrum antibiotics/supportive care per icu discussed with family---ongoing discussion regarding goals of care
[2016-10-24] MEDS ORDERED: PT OWN MED DRAWER 7, Y5N ONE (21:15)
[2016-10-24] MEDS: VANCOMYCIN 750 MG in DEXTROSE 5%-WATER - 250 ML IVPB SCH (21:27)
[2016-10-24] MEDS: CHLORHEXIDINE GLUCONATE 4% CLEANSER FOR DECOLONIZATION TP SCH (21:27)
[2016-10-24] MEDS ORDERED: CEFEPIME 2 GM/100 ML BAG PRE-DOCKED IVPB SCH (22:00)
[2016-10-24] MEDS: MEROPENEM 1 GM in DEXTROSE 5%-WATER - 250 ML IVPB SCH (23:01)
[2016-10-25] MEDS: MORPHINE 100 MG in SODIUM CHLORIDE 98 ML IVPB SCH ×2 (01:00→18:06)
[2016-10-25] MEDS ORDERED: NOREPINEPHRINE BITARTRATE 4 MG/4 ML ML IV ONE (01:50)
[2016-10-25] MEDS: PROPOFOL 100 ML IVPB SCH ×2 (02:00→11:44)
[2016-10-25] MEDS: HYDROCORTISONE SOD SUCCINATE 100 MG/2 ML VIAL IVPB SCH ×2 (03:39→11:43)
[2016-10-25] MEDS: NOREPINEPHRINE BITARTRATE 8,000 MCG in DEXTROSE 5%-WATER - 496 ML IV SCH (03:40)
[2016-10-25 06:17] LABS: MCH 29.4 pg (25.7-33.7); MCHC 32.7 g/dl (32.0-36.0); MEAN CELL VOLUME 89.9 fl (80-96); PLATELET COUNT 128 K/MM3 (134-434); WHITE BLOOD COUNT 25.1 K/mm3 (4.0-10.0)
[2016-10-25 06:28] LABS: INR 1.63 (0.82-1.09); PROTHROMBIN TIME (PATIENT) 18.1 SEC (9.98-11.88)
[2016-10-25 06:29] LABS: ALBUMIN 2.3 g/dl (3.4-5.0); BILIRUBIN,TOTAL 0.9 mg/dL (0.2-1.0); CREATININE 1.2 mg/dL (0.55-1.02); MAGNESIUM 1.5 mg/dL (1.8-2.4); TOT PROT 5.5 g/dl (6.4-8.2)
[2016-10-25 06:38] LABS: THYROID STIMULATING HORMONE 0.83 uIU/ml (0.358-3.74)
[2016-10-25 06:54] LABS: ACTIVATED PTT 35.6 SECONDS (26.9-34.4)
[2016-10-25 07:50] LABS: ARTERIAL BLD GAS O2 SATURATION 47.3 % (90-98.9)
[2016-10-25 07:51] LABS: ALLENS TEST POSITIVE; ART PUNCT SITE LEFT RADIAL; ARTERIAL BLOOD GAS BASE EXCESS -11.6 meq/l (-2-2); ARTERIAL BLOOD GAS HCO3 17.7 meq/L (22-26); LPM/O2% 100%; MECH. VENT. YES; PT. ON O2? YES; TYPE OF O2 MEC.VENT
[2016-10-25 07:52] LABS: ARTERIAL BLOOD GAS pH 7.12 (7.35-7.45); VENT RATE 16; VT/PRESS 450
[2016-10-25 07:56] LABS: PHOSPHOROUS 4.4 mg/dL (2.5-4.9)
--- NOTE | 2016-10-25 09:25 | PN ---
[id number] Pulse Resp BP Sys/Carias Pulse Ox Last 24 Hr 93.8 F-98.7 F 76-124 16-40 70-126/42-83 69-100 intubated FIO2 100% cor-rrr llungs decreased bs at bases abd soft,nt ext no edema CBC, BMP 10/25/16 05:00 10/25/16 05:00 Microbiology 10/24/16 04:20 Blood - Peripheral Venous Blood Culture - Preliminary NO GROWTH OBTAINED AFTER 24 HOURS, INCUBATION TO CONTINUE FOR 4 DAYS. 10/24/16 04:20 Blood - Peripheral Venous Blood Culture - Preliminary NO GROWTH OBTAINED AFTER 24 HOURS, INCUBATION TO CONTINUE FOR 4 DAYS. 10/24/16 13:41 Urine For Antigen Detection Legionella Antigen - Final 10/24/16 13:41 Urine For Antigen Detection Streptococcus pneumoniae Antigen (M - Final Active Medications Acetaminophen (Tylenol Suppository -) 325 mg LA Q6H PRN PRN Reason: FEVER OR PAIN Chlorhexidine Gluconate (Hibiclens For Decolonization -) 1 applic TP HS KATIE Last Admin: 10/24/16 21:27 Dose: 1 applic Hydrocortisone Sodium Succinate (Solu-Cortef -) 50 mg IVPB Q6H-IV KATIE Last Admin: 10/25/16 03:39 Dose: 50 mg Sodium Chloride (Normal Saline -) 1,000 mls @ 83 mls/hr IV ASDIR KATIE Stop: 10/25/16 21:33 Last Admin: 10/24/16 13:04 Dose: 83 mls/hr Famotidine/Sodium Chloride (Pepcid 20 Mg Premixed Ivpb -) 50 mls @ 100 mls/hr IVPB BID KATIE Last Admin: 10/24/16 21:26 Dose: 100 mls/hr Vancomycin HCl 750 mg/ (Dextrose) 250 mls @ 250 mls/hr IVPB BID KATIE PRN Reason: Protocol Last Admin: 10/24/16 21:27 Dose: 250 mls/hr Levofloxacin (Levaquin 750 Mg Premixed Ivpb -) 150 mls @ 100 mls/hr IVPB Q48H KATIE Propofol (Diprivan -) 100 mls @ 1.497 mls/hr IVPB TITR KATIE; 5 MCG/KG/MIN PRN Reason: Protocol Last Admin: 10/25/16 02:00 Dose: 5.3 mls/hr Morphine Sulfate 100 mg/ (Sodium Chloride) 100 mls @ 2 mls/hr IVPB TITR KATIE; 2 MG/HR PRN Reason: Protocol Last Admin: 10/25/16 01:00 Dose: 4 mls/hr Norepinephrine Bitartrate 8, (000 mcg/ Dextrose) 504 mls @ 15.12 mls/hr IV TITR KATIE; 4 MCG/MIN PRN Reason: Protocol Last Admin: 10/25/16 03:40 Dose: 56.7 mls/hr Meropenem 1 gm/ Dextrose 250 mls @ 500 mls/hr IVPB BID KATIE Last Admin: 10/24/16 23:01 Dose: 500 mls/hr Insulin Aspart (Novolog Vial Sliding Scale -) 1 vial SQ ACHS KATIE PRN Reason: Protocol Last Admin: 10/24/16 23:00 Dose: 2 units Mupirocin (Bactroban Ointment (For Decolonization) -) 1 applic NS BID [facility] Stop: 10/29/16 09:59 Last Admin: 10/24/16 21:27 Dose: 1 applic Phytonadione (Aqua Mephyton Injection -) 5 mg SQ DAILY [facility] Stop: 10/27/16 10:01 Pneumococcal 13-Valent Conj Vacc (Prevnar 13 Syringe -) 0.5 ml IM .ONCE ONE Stop: 10/24/16 11:12 a/p acute respiratory failure septic shock dnr/dni hypoxia hep c cirrhosis hepatopulmonary syndrome continue vanco/meropenem/levaquin for now d/w family at bedside they are considering withdrawing care
[2016-10-25] MEDS ORDERED: PHYTONADIONE 10 MG/1 ML AMP SQ SCH (10:00)
[2016-10-25] MEDS ORDERED: LEVOFLOXACIN 750 MG IVPB 150 ML IVPB SCH (10:00)
[2016-10-25] MEDS: INSULIN SLIDING SCALE (NOVOLOG) 1 VIAL SQ SCH (11:42)
[2016-10-25] MEDS: SODIUM CHLORIDE 1,000 ML IV SCH (11:43)
[2016-10-25] MEDS: MEROPENEM 1 GM in DEXTROSE 5%-WATER - 250 ML IVPB SCH (11:43)
[2016-10-25] MEDS: FAMOTIDINE 20 MG/50 ML IVPB 50 ML IVPB SCH (11:44)
[2016-10-25] MEDS: VANCOMYCIN 750 MG in DEXTROSE 5%-WATER - 250 ML IVPB SCH (11:44)
[2016-10-25 12:40] VITALS: BP 53/35; TEMP 98
--- NOTE | 2016-10-25 14:14 | PN ---
Teaching Attending Note Name of Resident: Juan Morales ATTENDING PHYSICIAN STATEMENT I saw and evaluated the patient. I reviewed the resident's note and discussed the case with the resident. I agree with the resident's findings and plan as documented. SUBJECTIVE: Patient seen and examined in the ICU. Intubated and sedated. AC Mode of vent 100% FiO2, saturation only 69% NE at 20 mcq for hemodynamic support. Intake & Output 10/22/16 10/23/16 10/24/16 10/25/16 23:59 23:59 23:59 23:59 Intake Total 1067 1900 Output Total 200 400 Balance 867 1500 Weight 109 lb 15.994 oz Last Vital Signs Temp Pulse Resp BP Pulse Ox 98 F 98 H 16 53/35 69 L 10/25/16 11:00 10/25/16 12:00 10/25/16 12:02 10/25/16 12:00 10/25/16 09:00 Active Medications Acetaminophen (Tylenol Suppository -) 325 mg AL Q6H PRN PRN Reason: FEVER OR PAIN Chlorhexidine Gluconate (Hibiclens For Decolonization -) 1 applic TP HS KATIE Last Admin: 10/24/16 21:27 Dose: 1 applic Hydrocortisone Sodium Succinate (Solu-Cortef -) 50 mg IVPB Q6H-IV KATIE Last Admin: 10/25/16 11:43 Dose: Not Given Famotidine/Sodium Chloride (Pepcid 20 Mg Premixed Ivpb -) 50 mls @ 100 mls/hr IVPB BID KATIE Last Admin: 10/25/16 11:44 Dose: Not Given Vancomycin HCl 750 mg/ (Dextrose) 250 mls @ 250 mls/hr IVPB BID KATIE PRN Reason: Protocol Last Admin: 10/25/16 11:44 Dose: Not Given Levofloxacin (Levaquin 750 Mg Premixed Ivpb -) 150 mls @ 100 mls/hr IVPB Q48H KATIE Morphine Sulfate 100 mg/ (Sodium Chloride) 100 mls @ 2 mls/hr IVPB TITR KATIE; 2 MG/HR PRN Reason: Protocol Last Admin: 10/25/16 01:00 Dose: 4 mls/hr Meropenem 1 gm/ Dextrose 250 mls @ 500 mls/hr IVPB BID KATIE Last Admin: 10/25/16 11:43 Dose: Not Given Insulin Aspart (Novolog Vial Sliding Scale -) 1 vial SQ ACHS [facility] PRN Reason: Protocol Last Admin: 10/25/16 11:42 Dose: Not Given Mupirocin (Bactroban Ointment (For Decolonization) -) 1 applic NS BID [facility] Stop: 10/29/16 09:59 Last Admin: 10/24/16 21:27 Dose: 1 applic Phytonadione (Aqua Mephyton Injection -) 5 mg SQ DAILY [facility] Stop: 10/27/16 10:01 Last Admin: 10/25/16 11:43 Dose: Not Given Pneumococcal 13-Valent Conj Vacc (Prevnar 13 Syringe -) 0.5 ml IM .ONCE ONE Stop: 10/24/16 11:12 GENERAL: Sedated, mechanically ventilated. HEAD: Normal with no signs of trauma. EYES: sclera anicteric. EARS, NOSE, THROAT: dry mucous membranes. NECK: supple without lymphadenopathy, JVD, or masses. LUNGS: Bilateral rhonchi, no wheezing HEART: Regular rate and rhythm, normal S1 and S2 without murmur, rub or gallop. ABDOMEN: Soft, not distended, normoactive bowel sounds, no guarding, no rebound , no masses. No hepatomegaly or splenomegaly. MUSCULOSKELETAL: No bony deformities UPPER EXTREMITIES: (+) cyanosis. LOWER EXTREMITIES: (+) cyanosis, Left femoral TLC. NEUROLOGICAL: Sedated SKIN: Warm, dry, normal turgor, no rashes or lesions noted. Laboratory Results - last 24 hr 10/24/16 10/24/16 10/24/16 08:15 11:30 13:41 WBC RBC Hgb Hct MCV MCHC RDW Plt Count MPV Neutrophils % Lymphocytes % INR PTT (Actin FS) 43.3 H Fibrinogen Fibrin Degrad Products Anticoagulation Therapy Puncture Site ABG pH ABG pCO2 at Pt Temp ABG pO2 at Pt Temp ABG HCO3 ABG O2 Sat (Measured) ABG O2 Content ABG Base Excess Chance Test O2 Delivery Device Oxygen Flow Rate Vent Mode Vent Rate Mechanical Rate PEEP Pressure Support Vent Sodium Potassium Chloride Carbon Dioxide Anion Gap BUN Creatinine Creat Clearance w eGFR Random Glucose Lactic Acid 3.909 H* Calcium Phosphorus Magnesium Total Bilirubin AST ALT Alkaline Phosphatase Total Protein Albumin TSH Blood Type B POSITIVE Antibody Screen 10/24/16 10/24/16 10/25/16 16:55 19:50 05:00 WBC 25.1 H D RBC 4.01 D Hgb 11.8 D Hct 36.0 D MCV 89.9 MCHC 32.7 RDW 18.0 H Plt Count 128 L MPV 10.0 Neutrophils % Y Lymphocytes % Y INR PTT (Actin FS) Fibrinogen Fibrin Degrad Products Greater than 40 Anticoagulation Therapy Puncture Site ABG pH ABG pCO2 at Pt Temp ABG pO2 at Pt Temp ABG HCO3 ABG O2 Sat (Measured) ABG O2 Content ABG Base Excess Chance Test O2 Delivery Device Oxygen Flow Rate Vent Mode Vent Rate Mechanical Rate PEEP Pressure Support Vent Sodium Potassium Chloride Carbon Dioxide Anion Gap BUN Creatinine Creat Clearance w eGFR Random Glucose Lactic Acid Calcium Phosphorus Magnesium Total Bilirubin AST ALT Alkaline Phosphatase Total Protein Albumin TSH Blood Type B POSITIVE Antibody Screen Negative 10/25/16 10/25/16 10/25/16 05:00 05:00 05:00 WBC RBC Hgb Hct MCV MCHC RDW Plt Count MPV Neutrophils % Lymphocytes % INR 1.63 H PTT (Actin FS) Fibrinogen Fibrin Degrad Products Anticoagulation Therapy Puncture Site ABG pH ABG pCO2 at Pt Temp ABG pO2 at Pt Temp ABG HCO3 ABG O2 Sat (Measured) ABG O2 Content ABG Base Excess Chance Test O2 Delivery Device Oxygen Flow Rate Vent Mode Vent Rate Mechanical Rate PEEP Pressure Support Vent Sodium 135 L Potassium 5.1 Chloride 106 Carbon Dioxide 21 Anion Gap 8 BUN 26 H D Creatinine 1.2 H D Creat Clearance w eGFR 43.01 Random Glucose 136 H Lactic Acid 1.575 Calcium 7.0 L Phosphorus 4.4 Magnesium 1.5 L Total Bilirubin 0.9 D AST 585 H D ALT 156 H D Alkaline Phosphatase 119 H D Total Protein 5.5 L Albumin 2.3 L TSH 0.83 Blood Type Antibody Screen 10/25/16 10/25/16 10/25/16 05:00 06:00 07:15 WBC RBC Hgb Hct MCV MCHC RDW Plt Count MPV Neutrophils % Lymphocytes % INR PTT (Actin FS) 35.6 H Fibrinogen 254.0 D Fibrin Degrad Products Anticoagulation Therapy Y Puncture Site Left radial ABG pH 7.12 L* D ABG pCO2 at Pt Temp 56.4 H D ABG pO2 at Pt Temp 33.0 L* D ABG HCO3 17.7 L ABG O2 Sat (Measured) 47.3 L* ABG O2 Content 7.8 L* ABG Base Excess -11.6 L* Chance Test Positive O2 Delivery Device Mec.vent Oxygen Flow Rate 100% Vent Mode A/c Vent Rate 16 Mechanical Rate Yes PEEP 18.0 Pressure Support Vent 450 Sodium Potassium Chloride Carbon Dioxide Anion Gap BUN Creatinine Creat Clearance w eGFR Random Glucose Lactic Acid Calcium Phosphorus Cancelled Magnesium Total Bilirubin AST ALT Alkaline Phosphatase Total Protein Albumin TSH Blood Type Antibody Screen Problem List - Problem (1) Acute hypoxemic respiratory failure Assessment/Plan: Code(s): J96.01 - ACUTE RESPIRATORY FAILURE WITH HYPOXIA (2) Pneumonia Assessment/Plan: Code(s): J18.9 - PNEUMONIA, UNSPECIFIED ORGANISM (3) Urinary tract infection Assessment/Plan: Code(s): N39.0 - URINARY TRACT INFECTION, SITE NOT SPECIFIED (4) Septic shock Assessment/Plan: Code(s): A41.9 - SEPSIS, UNSPECIFIED ORGANISM R65.21 - SEVERE SEPSIS WITH SEPTIC SHOCK (5) Hypothermia Assessment/Plan: Code(s): T68.XXXA - HYPOTHERMIA, INITIAL ENCOUNTER (6) Prolonged INR Assessment/Plan: Code(s): R79.1 - ABNORMAL COAGULATION PROFILE (7) DVT prophylaxis Assessment/Plan: Code(s): SHD7128 - (8) Goals of care, counseling/discussion Assessment/Plan: Code(s): Z71.89 - OTHER SPECIFIED COUNSELING PLAN: Long discussion with the patient's children. They are in agreement that Lizeth would want comfort measures in this scenario. I explained that chances of recuperation are minimal given her advanced liver and lung disease. The family is in agreement for a compassionate extubation, which is appropriate given her overall condition. Morphine sulfate drip titrated for comfort. Ativan PRN DNR / DNI Dr Winston CCTime 35"
--- NOTE | 2016-10-25 15:04 | PN ---
Physical Exam: SUBJECTIVE: Patient seen and examined at bedside in the ICU. She's intubated and sedated. OBJECTIVE: Intubated, sedated on mechanical ventilation Vent settings: AC, RR 16, TV 450, FiO2 100, PEEP 18 On propofol 15mcg and levophed 12 mcg Vital Signs Period Temp Pulse Resp BP Sys/Carias Pulse Ox Last 24 Hr 97.6 F-98.7 F 88-122 12-35 53-126/35-83 69-92 GENERAL: Intubated, sedated, on mechanical ventilation, dusky looking face, non- responsive to any stimuli. LUNGS: Decreased breath sounds at bases HEART: Regular rate and rhythm, S1, S2 without murmur, rub or gallop. ABDOMEN: Soft, no grimace on face upon palpation, non-distended EXTREMITIES: warm and no edema : santos in place, yuri color urine output ABG Results ABG pH 7.12 (7.35-7.45) L* D 10/25/16 07:15 ABG pCO2 at Pt Temp 56.4 mmHg (35-45) H D 10/25/16 07:15 ABG pO2 at Pt Temp 33.0 mmHg (68-100) L* D 10/25/16 07:15 ABG HCO3 17.7 meq/L (22-26) L 10/25/16 07:15 ABG O2 Sat (Measured) 47.3 % (90-98.9) L* 10/25/16 07:15 ABG O2 Content 7.8 % vol (15-22) L* 10/25/16 07:15 ABG Base Excess -11.6 meq/l (-2-2) L* 10/25/16 07:15 CBCD WBC 25.1 K/mm3 (4.0-10.0) H D 10/25/16 05:00 RBC 4.01 M/mm3 (3.60-5.2) D 10/25/16 05:00 Hgb 11.8 GM/dL (10.7-15.3) D 10/25/16 05:00 Hct 36.0 % (32.4-45.2) D 10/25/16 05:00 MCV 89.9 fl (80-96) 10/25/16 05:00 MCHC 32.7 g/dl (32.0-36.0) 10/25/16 05:00 RDW 18.0 % (11.6-15.6) H 10/25/16 05:00 Plt Count 128 K/MM3 (134-434) L 10/25/16 05:00 MPV 10.0 fl (7.5-11.1) 10/25/16 05:00 CMP Sodium 135 mmol/L (136-145) L 10/25/16 05:00 Potassium 5.1 mmol/L (3.5-5.1) 10/25/16 05:00 Chloride 106 mmol/L (98-107) 10/25/16 05:00 Carbon Dioxide 21 mmol/L (21-32) 10/25/16 05:00 Anion Gap 8 (8-16) 10/25/16 05:00 BUN 26 mg/dL (7-18) H D 10/25/16 05:00 Creatinine 1.2 mg/dL (0.55-1.02) H D 10/25/16 05:00 Creat Clearance w eGFR 43.01 (>60) 10/25/16 05:00 Calcium 7.0 mg/dL (8.5-10.1) L 10/25/16 05:00 Total Bilirubin 0.9 mg/dL (0.2-1.0) D 10/25/16 05:00 AST 585 U/L (15-37) H D 10/25/16 05:00 ALT 156 U/L (12-78) H D 10/25/16 05:00 Alkaline Phosphatase 119 U/L (45-117) H D 10/25/16 05:00 Total Protein 5.5 g/dl (6.4-8.2) L 10/25/16 05:00 Albumin 2.3 g/dl (3.4-5.0) L 10/25/16 05:00 Intake & Output 10/22/16 10/23/16 10/24/16 10/25/16 23:59 23:59 23:59 23:59 Intake Total 1067 1900 Output Total 200 400 Balance 867 1500 Weight 49.895 kg Microbiology 10/24/16 04:52 Urine - Urine - Catheterized Urine Culture - Preliminary Lactose Fermenting Neg Bacilli 10/24/16 04:20 Blood - Peripheral Venous Blood Culture - Preliminary NO GROWTH OBTAINED AFTER 24 HOURS, INCUBATION TO CONTINUE FOR 4 DAYS. 10/24/16 04:20 Blood - Peripheral Venous Blood Culture - Preliminary NO GROWTH OBTAINED AFTER 24 HOURS, INCUBATION TO CONTINUE FOR 4 DAYS. 10/24/16 13:41 Urine For Antigen Detection Legionella Antigen - Final 10/24/16 13:41 Urine For Antigen Detection Streptococcus pneumoniae Antigen (M - Final Active Medications Generic Name Dose Route Start Last Admin Trade Name Freq PRN Reason Stop Dose Admin Acetaminophen 325 mg 10/24/16 09:24 Tylenol Suppository - [place] Q6H PRN FEVER OR PAIN Chlorhexidine Gluconate 1 applic 10/24/16 22:00 10/24/16 21:27 Hibiclens For Decolonization - TP 1 applic HS KATIE Administration Hydrocortisone Sodium Succinate 50 mg 10/24/16 15:00 10/25/16 11:43 Solu-Cortef - IVPB Not Given Q6H-IV KATIE Famotidine/Sodium Chloride 50 mls @ 100 mls/hr 10/24/16 10:00 10/25/16 11:44 Pepcid 20 Mg Premixed Ivpb - IVPB Not Given BID KATIE Vancomycin HCl 750 mg/ 250 mls @ 250 mls/hr 10/24/16 22:00 10/25/16 11:44 Dextrose IVPB Not Given BID [facility] Protocol Levofloxacin 150 mls @ 100 mls/hr 10/26/16 10:00 Levaquin 750 Mg Premixed Ivpb - IVPB Q48H KATIE Morphine Sulfate 100 mg/ 100 mls @ 2 mls/hr 10/24/16 17:15 10/25/16 01:00 Sodium Chloride IVPB 4 mls/hr TITR KATIE Administration Protocol 2 MG/HR Meropenem 1 gm/ Dextrose 250 mls @ 500 mls/hr 10/24/16 22:15 10/25/16 11:43 IVPB Not Given BID KATIE Insulin Aspart 1 vial 10/24/16 11:00 10/25/16 11:42 Novolog Vial Sliding Scale - SQ Not Given ACHS [facility] Protocol Mupirocin 1 applic 10/24/16 10:00 10/24/16 21:27 Bactroban Ointment (For Decolonization) - NS 10/29/16 09:59 1 applic BID KATIE Administration Phytonadione 5 mg 10/25/16 10:00 10/25/16 11:43 Aqua Mephyton Injection - SQ 10/27/16 10:01 Not Given DAILY KATIE Pneumococcal 13-Valent Conj Vacc 0.5 ml 10/24/16 11:11 Prevnar 13 Syringe - IM 10/24/16 11:12 .ONCE ONE Imaging CXR on 10/25: No significant change CXR on 10/24: Shallow inspiration. Status post intubation,Status post intubation , the tip of ET tube at the level of T2-T3. No pneumothorax is seen. 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 of ~70%, end stage liver cirrhosis 2/2 hepatitis C admitted to ICU with respiratory failure and septic shock likely 2/2 pneumonia vs. UTI. Patient's prognosis remains grave. Dr. Winston had a long conversation with patient's family regarding goal of care. Objective information including prognosis, risks and benefits were conveyed to family members including the next of kin. Family members decided to proceed with compassionate extubation with comfort. Palliative Care: End of life support - Compassionate extubation - Morphine 3mg IVPUSH once - Morphine gtt - Ativan PRN - Emotional support Visit type - Emergency Visit Emergency Visit: No - New Patient This patient is new to me today: No - Critical Care Critical Care patient: Yes Total Critical Care Time (in minutes): 35 Critical Care Statement: The care of this patient involved high complexity decision making to prevent further life threatening deterioration of the patient 's condition and/or to evalute & treat vital organ system(s) failure or risk of failure.
--- NOTE | 2016-10-25 17:40 | PN ---
Physical Exam: SUBJECTIVE: Patient seen and examined in ICU. OBJECTIVE: Vital Signs Period Temp Pulse Resp BP Sys/Carias Pulse Ox Last 24 Hr 97.6 F-98.7 F 88-122 12-35 53-126/35-83 69-92 NEURO: Sedated. Unresponsive. On morphine drip. PULM: Agonal breathing. CV: S1, S2 Laboratory Results - last 24 hr 10/24/16 10/24/16 10/24/16 08:15 16:55 19:50 WBC RBC Hgb Hct MCV MCHC RDW Plt Count MPV Neutrophils % Lymphocytes % INR PTT (Actin FS) Fibrinogen Fibrin Degrad Products Greater than 40 Anticoagulation Therapy Puncture Site ABG pH ABG pCO2 at Pt Temp ABG pO2 at Pt Temp ABG HCO3 ABG O2 Sat (Measured) ABG O2 Content ABG Base Excess Chance Test O2 Delivery Device Oxygen Flow Rate Vent Mode Vent Rate Mechanical Rate PEEP Pressure Support Vent Sodium Potassium Chloride Carbon Dioxide Anion Gap BUN Creatinine Creat Clearance w eGFR Random Glucose Lactic Acid Calcium Phosphorus Magnesium Total Bilirubin AST ALT Alkaline Phosphatase Total Protein Albumin TSH Blood Type B POSITIVE B POSITIVE Antibody Screen Negative 10/25/16 10/25/16 10/25/16 05:00 05:00 05:00 WBC 25.1 H D RBC 4.01 D Hgb 11.8 D Hct 36.0 D MCV 89.9 MCHC 32.7 RDW 18.0 H Plt Count 128 L MPV 10.0 Neutrophils % Y Lymphocytes % Y INR 1.63 H PTT (Actin FS) Fibrinogen Fibrin Degrad Products Anticoagulation Therapy Puncture Site ABG pH ABG pCO2 at Pt Temp ABG pO2 at Pt Temp ABG HCO3 ABG O2 Sat (Measured) ABG O2 Content ABG Base Excess Chance Test O2 Delivery Device Oxygen Flow Rate Vent Mode Vent Rate Mechanical Rate PEEP Pressure Support Vent Sodium 135 L Potassium 5.1 Chloride 106 Carbon Dioxide 21 Anion Gap 8 BUN 26 H D Creatinine 1.2 H D Creat Clearance w eGFR 43.01 Random Glucose 136 H Lactic Acid Calcium 7.0 L Phosphorus 4.4 Magnesium 1.5 L Total Bilirubin 0.9 D AST 585 H D ALT 156 H D Alkaline Phosphatase 119 H D Total Protein 5.5 L Albumin 2.3 L TSH 0.83 Blood Type Antibody Screen 10/25/16 10/25/16 10/25/16 05:00 05:00 06:00 WBC RBC Hgb Hct MCV MCHC RDW Plt Count MPV Neutrophils % Lymphocytes % INR PTT (Actin FS) 35.6 H Fibrinogen 254.0 D Fibrin Degrad Products Anticoagulation Therapy Puncture Site ABG pH ABG pCO2 at Pt Temp ABG pO2 at Pt Temp ABG HCO3 ABG O2 Sat (Measured) ABG O2 Content ABG Base Excess Chance Test O2 Delivery Device Oxygen Flow Rate Vent Mode Vent Rate Mechanical Rate PEEP Pressure Support Vent Sodium Potassium Chloride Carbon Dioxide Anion Gap BUN Creatinine Creat Clearance w eGFR Random Glucose Lactic Acid 1.575 Calcium Phosphorus Cancelled Magnesium Total Bilirubin AST ALT Alkaline Phosphatase Total Protein Albumin TSH Blood Type Antibody Screen 10/25/16 07:15 WBC RBC Hgb Hct MCV MCHC RDW Plt Count MPV Neutrophils % Lymphocytes % INR PTT (Actin FS) Fibrinogen Fibrin Degrad Products Anticoagulation Therapy Y Puncture Site Left radial ABG pH 7.12 L* D ABG pCO2 at Pt Temp 56.4 H D ABG pO2 at Pt Temp 33.0 L* D ABG HCO3 17.7 L ABG O2 Sat (Measured) 47.3 L* ABG O2 Content 7.8 L* ABG Base Excess -11.6 L* Chance Test Positive O2 Delivery Device Mec.vent Oxygen Flow Rate 100% Vent Mode A/c Vent Rate 16 Mechanical Rate Yes PEEP 18.0 Pressure Support Vent 450 Sodium Potassium Chloride Carbon Dioxide Anion Gap BUN Creatinine Creat Clearance w eGFR Random Glucose Lactic Acid Calcium Phosphorus Magnesium Total Bilirubin AST ALT Alkaline Phosphatase Total Protein Albumin TSH Blood Type Antibody Screen Active Medications Generic Name Dose Route Start Last Admin Trade Name Freq PRN Reason Stop Dose Admin Acetaminophen 325 mg 10/24/16 09:24 Tylenol Suppository - [place] Q6H PRN FEVER OR PAIN Chlorhexidine Gluconate 1 applic 10/24/16 22:00 10/24/16 21:27 Hibiclens For Decolonization - TP 1 applic HS KATIE Administration Hydrocortisone Sodium Succinate 50 mg 10/24/16 15:00 10/25/16 11:43 Solu-Cortef - IVPB Not Given Q6H-IV KATIE Famotidine/Sodium Chloride 50 mls @ 100 mls/hr 10/24/16 10:00 10/25/16 11:44 Pepcid 20 Mg Premixed Ivpb - IVPB Not Given BID KATIE Vancomycin HCl 750 mg/ 250 mls @ 250 mls/hr 10/24/16 22:00 10/25/16 11:44 Dextrose IVPB Not Given BID [facility] Protocol Levofloxacin 150 mls @ 100 mls/hr 10/26/16 10:00 Levaquin 750 Mg Premixed Ivpb - IVPB Q48H KATIE Morphine Sulfate 100 mg/ 100 mls @ 2 mls/hr 10/24/16 17:15 10/25/16 01:00 Sodium Chloride IVPB 4 mls/hr TITR KATIE Administration Protocol 2 MG/HR Meropenem 1 gm/ Dextrose 250 mls @ 500 mls/hr 10/24/16 22:15 10/25/16 11:43 IVPB Not Given BID KATIE Insulin Aspart 1 vial 10/24/16 11:00 10/25/16 11:42 Novolog Vial Sliding Scale - SQ Not Given ACHS KATIE Protocol Mupirocin 1 applic 10/24/16 10:00 10/24/16 21:27 Bactroban Ointment (For Decolonization) - NS 10/29/16 09:59 1 applic BID KATIE Administration Phytonadione 5 mg 10/25/16 10:00 10/25/16 11:43 Aqua Mephyton Injection - SQ 10/27/16 10:01 Not Given DAILY KATIE Pneumococcal 13-Valent Conj Vacc 0.5 ml 10/24/16 11:11 Prevnar 13 Syringe - IM 10/24/16 11:12 .ONCE ONE ASSESSMENT/PLAN: 80 year-old woman with a PMH of Hep C and hepatopulmonary syndrome admitted for acute hypoxemic respiratory failure and septic shock. Patient was compassionately extubated earlier today. She is on a morphine drip. Her breathing is agonal. Family is at the bedside. DNR/DNI. Visit type - Emergency Visit Emergency Visit: Yes ED Registration Date: 10/24/16 Care time: The patient presented to the Emergency Department on the above date and was hospitalized for further evaluation of their emergent condition. - New Patient This patient is new to me today: Yes Date on this admission: 10/25/16 - Critical Care Critical Care patient: Yes Total Critical Care Time (in minutes): 20
[2016-10-25] MEDS: MUPIROCIN 2% TOPICAL OINTMENT FOR DECOLONIZATION NS SCH ×2 (18:10→23:02)
--- NOTE | 2016-10-25 21:13 | PN ---
Progress Note (short form) - Note Progress Note: Patient terminally weaned. Family at bedside. Agonal breathing Last Vital Signs Temp Pulse Resp BP Pulse Ox 98 F 109 H 16 53/35 69 L 10/25/16 11:00 10/25/16 17:00 10/25/16 12:02 10/25/16 12:00 10/25/16 09:00 Scattered rhonchi Reg rhythm CBC, BMP 10/25/16 05:00 10/25/16 05:00 Current Medications Generic Name Dose Route Start Last Admin Trade Name Freq PRN Reason Stop Dose Admin Acetaminophen 325 mg 10/24/16 09:24 Tylenol Suppository - [place] Q6H PRN FEVER OR PAIN Chlorhexidine Gluconate 1 applic 10/24/16 22:00 10/24/16 21:27 Hibiclens For Decolonization - TP 1 applic HS KATIE Administration Morphine Sulfate 100 mg/ 100 mls @ 2 mls/hr 10/24/16 17:15 10/25/16 18:06 Sodium Chloride IVPB 6 mls/hr TITR KATIE Administration Protocol 2 MG/HR Mupirocin 1 applic 10/24/16 10:00 10/25/16 18:10 Bactroban Ointment (For Decolonization) - NS 10/29/16 09:59 Not Given BID KATIE Pneumococcal 13-Valent Conj Vacc 0.5 ml 10/24/16 11:11 Prevnar 13 Syringe - IM 10/24/16 11:12 .ONCE ONE Impression: Septic shock Hypoxic respiratory Failure Terminal weaning. DNR/DNI
[2016-10-25] MEDS: CHLORHEXIDINE GLUCONATE 4% CLEANSER FOR DECOLONIZATION TP SCH (22:00)
--- NOTE | 2016-10-26 01:59 | HOSP ---
Hospitalist Encounter Assessment: called by nurse @ 148AM pt passed. Attended pt at bedside. No respirations, no hearbeat auscultated, no electrical activity on heater helper. Pt pronounced. Family at bedside. Condolences offered. Family with no questions at this time. Reassured we are available if needed.
[2016-10-26 02:55] VITALS: PULSE 20
[2016-10-26] MEDS ORDERED: LEVOFLOXACIN 750 MG IVPB 150 ML IVPB SCH (10:00)
== END 2016-10-26 01:48 | disposition expired | DRG 871 ==
LOC: JER 03:54 → JERBED 06:32 → JICU 11:05
PROVIDERS: ADMIT Internal Medicine; ATTEND Nurse Practitioner Acute Care
PROC: 06HN33Z Insertion of Infusion Device into Left Femoral Vein, Percutaneous Approach (ICD-10-PCS; principal; 2016-10-24)
PROC: 0BH17EZ Insertion of Endotracheal Airway into Trachea, Via Natural or Artificial Opening (ICD-10-PCS; 2016-10-24)
PROC: 5A1945Z Respiratory Ventilation, 24-96 Consecutive Hours (ICD-10-PCS; 2016-10-24)
PROC: 0BP1XDZ Removal of Intraluminal Device from Trachea, External Approach (ICD-10-PCS; 2016-10-24)
DX: A41.89 Other specified sepsis (principal); R65.21 Severe sepsis with septic shock; J18.9 Pneumonia, unspecified organism; J96.01 Acute respiratory failure with hypoxia; D65 Disseminated intravascular coagulation [defibrination syndrome]; N39.0 Urinary tract infection, site not specified; D68.8 Other specified coagulation defects; R68.0 Hypothermia, not associated with low environmental temperature; K76.81 Hepatopulmonary syndrome; B19.20 Unspecified viral hepatitis C without hepatic coma; Z88.0 Allergy status to penicillin; Z66 Do not resuscitate
CPT/HCPCS: 36415; 36430; 36600; 71010-TC; 80053; 81003; 81015; 82550; 82803; 83605; 83735; 83880; 84100; 84443; 84484; 85025; 85362; 85379; 85384; 85610; 85730; 86850; 86900; 86901; 87040; 87086; 87186; 87899; 93005; 93010; 94002; 99285-25; P9012; P9017